=== PATIENT | male | born 1950 ===

== ENCOUNTER → 2018-05-26 22:12 | Outpatient (REF) | payer MEDICARE, OTHER, SELFPAY ==
[2018-05-26 22:57] LABS: C-Reactive Protein Quant 0.6 mg/dL (<1.0); Uric Acid 5.3 mg/dL (3.5-8.5)
[2018-05-26 23:13] LABS: Add Manual Diff / Slide Review NO; Basophils Percent Auto 0.7 % (0-2); Eosinophils Percent Auto 5.9 % (2-4); Hematocrit 46.9 % (41-53); Hemoglobin 15.8 g/dL (13.5-17.5); Lymphocytes Percent Auto 21.2 % (25-40); Mean Corpuscular HGB Conc 33.6 % (30-36); Mean Corpuscular Hemoglobin 29.6 PG (26-34); Mean Corpuscular Volume 88.1 fL (80-100); Monocytes Percent Auto 9.1 % (3-14); Neutrophils Absolute Auto 4300 /uL (3000-5900); Neutrophils Percent Auto 63.1 % (50-75); Platelet Count 208 X10^3/uL (150-400); Red Blood Cell Count 5.33 X10^6/uL (4.5-5.9); White Blood Cell Count 6.8 X10^3/uL (4.5-11.0)
[2018-05-26 23:16] LABS: Rheumatoid Factor < 8.6 IU/mL (<12.0)
[2018-05-26 23:49] LABS: Erythrocyte Sedimentation Rate 4 MM/HR (0-15)
[2018-05-28 14:41] LABS: Complement C3 128 mg/dL (82-185)
[2018-05-28 15:48] LABS: CCP Antibody (IgG) < 16 Units (< 20)
[2018-05-28 20:44] LABS: ANA Screen, IFA Negative (Negative)
[2018-05-29 11:16] LABS: DNA (DS) Antibody < 1 IU/mL (< 5)
[2018-05-30 18:16] LABS: HLA B27 NEGATIVE (Negative)
== END ==
LOC: LAB 22:12
PROVIDERS: Visit Provider Physician Assistant
DX: S33.5XXA Sprain of ligaments of lumbar spine, initial encounter (principal); M62.830 Muscle spasm of back; M79.645 Pain in left finger(s); L53.8 Other specified erythematous conditions; L40.0 Psoriasis vulgaris
CPT/HCPCS: 83516; 84550; 85025; 85651; 86038; 86140; 86160; 86225; 86235; 86430; 86812

== ENCOUNTER → 2018-07-30 21:25 | Outpatient (REF) | payer MEDICARE, OTHER, SELFPAY ==
[2018-07-30 21:29] LABS: Bacteria Urine None Seen
[2018-07-30 22:07] LABS: Appearance Urine UA CLEAR; Bilirubin Urine UA NEGATIVE (NEGATIVE); Color Urine UA YELLOW; Glucose Urine UA NEGATIVE (Negative); Ketones Urine UA NEGATIVE (NEGATIVE); Leukocyte Esterase Urine UA NEGATIVE (NEGATIVE); Nitrite Urine UA NEGATIVE (Negative); Occult Blood Urine UA 2+ (Negative); Protein Urine UA NEGATIVE (Negative); Specific Gravity Urine UA 1.025 (1.000-1.035); Urobilinogen Urine UA 0.2 E.U./dL (0.2)
[2018-07-30 22:10] LABS: Add Manual Diff / Slide Review NO; Basophils Absolute Auto 0 /uL (0-100); Basophils Percent Auto 0.7 % (0-2); Eosinophils Absolute Auto 300 /uL (0-450); Eosinophils Percent Auto 4.7 % (2-4); Hematocrit 46.2 % (41-53); Hemoglobin 15.6 g/dL (13.5-17.5); Lymphocytes Absolute Auto 1600 /uL (1100-4500); Mean Corpuscular HGB Conc 33.8 % (30-36); Mean Corpuscular Hemoglobin 30.2 PG (26-34); Mean Corpuscular Volume 89.1 fL (80-100); Monocytes Absolute Auto 800 /uL (0-900); Monocytes Percent Auto 10.8 % (3-14); Neutrophils Absolute Auto 4200 /uL (1500-7000); Neutrophils Percent Auto 60.8 % (50-75); Platelet Count 207 X10^3/uL (150-400); Red Blood Cell Count 5.19 X10^6/uL (4.5-5.9)
[2018-07-30 22:11] LABS: Alanine Aminotransferase 35 IU/L (21-72); Albumin 4.4 g/dL (3.5-5.0); Albumin Globulin Ratio 1.3 (1.0-2.8); Alkaline Phosphatase 66 U/L (38-126); Aspartate Aminotransferase 26 IU/L (17-59); Blood Urea Nitrogen 20 mg/dL (9-20); Calcium 10.2 mg/dL (8.4-10.2); Carbon Dioxide 32 mmol/L (22-32); Chloride 97 mmol/L (98-107); Cholesterol 149 mg/dL (140-199); Estimated Glomerular Filt Rate > 60.0 mL/min (>60); Globulin 3.3 g/dL (1.7-4.1); Glucose 79 mg/dL (80-110); HDL Cholesterol 48 mg/dL (40-60); HEMOLYSIS < 15 (0-50); LDL Cholesterol Calculated 84 mg/dL (<100); Potassium 4.3 mmol/L (3.4-5.1); Sodium 138 mmol/L (137-145); Total Protein 7.7 g/dL (6.3-8.2); Triglycerides 85 mg/dL (35-150)
[2018-07-30 22:18] LABS: RBC Urine 5-10/HPF (0-5/HPF); Squamous Epithelial Cell Urine 0-1 /HPF; WBC Urine 0-1/HPF (0-5/HPF)
[2018-07-30 22:41] LABS: TSH w/ Reflex to FT4 1.44 uIU/mL (0.47-4.68)
[2018-07-30 22:46] LABS: Ferritin 47.3 ng/mL (17.9-464)
[2018-08-01 14:25] LABS: PSA Total 2.23 ng/mL (< 4.01)
== END ==
LOC: LAB 21:25
PROVIDERS: Visit Provider Naturopath
DX: I10 Essential (primary) hypertension (principal); Z13.89 Encounter for screening for other disorder; E78.5 Hyperlipidemia, unspecified; R26.81 Unsteadiness on feet; M79.645 Pain in left finger(s); E66.3 Overweight
CPT/HCPCS: 36415; 80053; 80061; 81001; 82728; 84153; 84154; 84443; 85025

== ENCOUNTER → 2018-08-14 22:28 | Outpatient (REF) | payer MEDICARE, OTHER, SELFPAY ==
[2018-08-14 22:31] LABS: Bacteria Urine None Seen
[2018-08-15 01:26] LABS: Appearance Urine UA CLEAR; Bilirubin Urine UA NEGATIVE (NEGATIVE); Color Urine UA YELLOW; Glucose Urine UA NEGATIVE (Negative); Ketones Urine UA NEGATIVE (NEGATIVE); Leukocyte Esterase Urine UA NEGATIVE (NEGATIVE); Nitrite Urine UA NEGATIVE (Negative); Occult Blood Urine UA 1+ (Negative); Protein Urine UA NEGATIVE (Negative); Specific Gravity Urine UA 1.025 (1.000-1.035); Urobilinogen Urine UA 0.2 E.U./dL (0.2)
[2018-08-15 07:37] LABS: Culture Indicated Urine Cult Not Indicated; RBC Urine 0-1/HPF (0-5/HPF); Sperm Urine FEW; WBC Urine 0-1/HPF (0-5/HPF)
== END ==
LOC: LAB 22:28
PROVIDERS: Visit Provider Naturopath
DX: R31.9 Hematuria, unspecified (principal)
CPT/HCPCS: 81001